=== PATIENT | female | born 1960 | race Caucasian/White ===

== ENCOUNTER 2021-01-19 00:15 | Emergency (ER) | payer OTHER ==
[~2021-01-19] VITALS: Ht 154.9 cm; Wt 77.1 kg
[2021-01-19 01:33] LABS: Source, Urine Clean Catch
[2021-01-19 01:36] LABS: Appearance, Urine Cloudy (Clear); Bilirubin, Urine Neg (Neg); Blood, Urine 5+ (Neg); Color, Urine Yellow (P-Yellow); Glucose Qualitative, Urine Neg (Neg); Ketones, Urine Neg (Neg); Leukocyte Esterase, Urine 3+ (Neg); Nitrite, Urine Neg (Neg); Protein, Urine 3+ (Neg); Urobilinogen, Urine NORM (Normal)
[2021-01-19 01:45] LABS: White Blood Cells, Urine TNTC /hpf (0-5)
[2021-01-19 01:46] LABS: Bacteria Many /hpf; Red Blood Cells, Urine 50-100 /hpf (0-2); Squamous Epithelial Cells Not Seen /hpf (Few)
[2021-01-19] MEDS ORDERED: Macrobid 100 M100 MG PO (02:36)
== END 2021-01-19 02:40 | disposition home or self-care (01) ==
LOC: ER 00:15
PROVIDERS: Physician Assistant
DX: N39.0 Urinary tract infection, site not specified (principal)
CPT/HCPCS: 81001; 87077; 87086; 87186; 99283; A9270